=== PATIENT | female | born 1970 | race Caucasian/White ===

== ENCOUNTER 2020-08-12 17:05 | Emergency (ER) | payer BC, SELFPAY ==
--- NOTE | 2020-08-12 17:14 | ED.CHESTPAIN ---
HPI - Chest Pain General Chief Complaint: General Medical Stated Complaint: chest pain/headache Time Seen by Provider: 08/12/20 17:14 Source: patient Mode of arrival: ambulatory Limitations: no limitations History of Present Illness HPI narrative: 50-year-old female with past medical history of hypothyroidism presents with sudden onset of right-sided headache, right-sided arm weakness, and right-sided chest pain. She does have a history of bilateral carpal tunnel and has not had the right hand repaired. She does not report any trauma, is not on any hormones, has no history of blood clots, no family history of stroke or coronary artery disease. She denies chest pressure, palpitations, shortness of breath, abdominal pain, abdominal distention, dysuria, hematuria, loss of balance, decreased range of motion fevers and chills. MD complaint: chest pain Onset (ago): hour(s) (4) Timing of current episode: constant and still present Prior episodes: No Onset: during rest Pain location: substernal Pain radiation: right arm Severity: moderate Pain scale (0-10): 7 Quality: aching Relieving factors: nothing Exacerbating factors: nothing Associated symptoms: other ( Headache) Treatment prior to arrival: aspirin and nitroglycerin Risk Factors Coronary artery disease risk factors: none Thoracic aortic dissection risk factors: none Related Data On Oral Contraceptives: No Allergies Allergy/AdvReac Type Severity Reaction Status Date / Time codeine [CODEINE] Allergy Mild HEADACHES Verified 08/12/20 21:24 Penicillins [PENICILLINS] Allergy Unknown HEAVINESS Verified 08/12/20 21:24 IN HEAD Review of Systems Review of Systems: Constitutional: No Weight loss, No Fever, No Chills, No Night Sweats, No Fatigue, No Malaise ENT/Mouth: No Hearing loss, No Ear Pain, No Nasal Congestion, No Sinus Pain, No Hoarseness, No sore throat, No Rhinorrhea, No Swallowing Difficulty Eyes: No Eye Pain, No Swelling, No Redness, No Foreign Body, No Discharge, No Vision Changes Cardiovascular: pos Chest Pain, no SOB, no Dyspnea on Exertion, No Orthopnea, No Edema, No Palpitations Respiratory: No Cough, No Sputum, No Wheezing, No Smoke Exposure, No Dyspnea Gastrointestinal: no Nausea, No Vomiting, No Diarrhea, No abdominal Pain, No Hematochezia, No Melena Genitourinary: No irregular bleeding, No Dysuria, No Urinary Frequency, No Hematuria, No Urinary Incontinence, No Urgency, No Flank Pain, No Urinary Flow Changes, No Hesitancy Musculoskeletal: No joint pain, No Myalgias, No Joint Swelling Skin: No Skin Lesions, No rash Neuro: No Weakness, No Numbness, No Paresthesias, No Loss of Consciousness, No Dizziness, positive Headache Psych: No Anxiety/Panic, No Depression, No SI/HI/AH/VH Heme/Lymph: No Bruising, No Bleeding,No Lymphadenopathy Endocrine: No Polyuria, No Polydipsia, No Temperature Intolerance Yes all other systems are reviewed and are negative [facility] Past Medical History Medical History (Updated 08/13/20 @ 00:00 by Brigette Trejo) Hypothyroid Social History Social History Alcohol intake: never Smoked in Last 30 Days: No Use of substances other than those prescribed or required for medical reasons: No Advance Directives: No Advance Directives Information Provided: No Physical Exam Vital Signs: Vital Signs: Last Vital Signs Temp 98.3 F 08/12/20 17:15 Pulse 62 08/12/20 21:25 Resp 16 08/12/20 21:25 BP 126/77 08/12/20 21:25 Pulse Ox 98 08/12/20 21:25 Body Mass Index 30.2 Appearance: Alert. Oriented X3. No acute distress. Eyes: Pupils equal, round and reactive to light. ENT: Pharynx normal. Neck: Normal inspection. Neck supple. CVS: Normal heart rate and rhythm. Pulses normal. Respiratory: No respiratory distress. Breath sounds normal. Abdomen: Soft and nontender. Skin: Skin warm and dry. Normal skin color. Normal skin turgor. Extremities: No lower extremity edema. Neuro: No motor deficit. No sensory deficit. NIH Stroke Scale Internal: Initial- Upon Arrival Level of Consciousness: Alert Level of Consciousness Questions: Answers both questions correctly Level of Consciousness Commands: Performs both tasks correctly Best Gaze: Normal Visual: No visual loss Facial Palsy: Normal Motor Arm (Right): No drift Motor Arm (Left): No drift Motor Leg (Right): No drift Motor Leg (Left): No drift Limb Ataxia: Absent Sensory: Normal Best Language: No aphasia Dysarthia: Normal Extinction and Inattention: No abnormality Score: 0 Course Course Course Narrative: 50-year-old female with past medical history of hypothyroidism presents with right-sided headache, right-sided chest pain and right-sided arm pain With weakness to the hand. She does have carpal tunnel and has a baseline weakness to the right hand however does have full range of motion to all extremities. NIH stroke scale upon arrival is negative, highly unlikely that this is a stroke, stroke alert will not be called at this time. We will order CTA of head, neck, and chest. She does have tachycardia with increased chest pain on inspiration. we will rule out ACS, order CBC, Chem 7, EKG, urinalysis and U preg. Labs are unremarkable, troponin is negative, EKG is normal sinus rhythm with rightward axis. CTA of head and neck, chest negative for acute findings. This could be viral illness, Anxiety, however patient must follow up with primary care physician in the next week or so for further evaluation. MDM - Chest Pain MDM Narrative Medical decision making narrative: PE, CVA, viral illness Differential Diagnosis Differential diagnosis: Likely fracture of rib, pneumothorax, stable angina, unstable angina pectoris, atypical chest pain, st elevation myocardial infarction, costochondritis, chest pain and biliary colic Medical Records Data Attestation: I reviewed the patient's medical records. Lab Data Attestation: I reviewed the patient's lab results. Result diagrams: 08/12/20 18:42 08/12/20 18:41 Labs: Lab Results 08/12/20 08/12/20 08/12/20 Range/Units 18:17 18:17 18:41 WBC (4.8-10.8) X10*3/uL RBC (4.20-5.50) X10*6/uL Hgb (12.0-16.0) g/dl Hct (37-47) % MCV (80-98) fL MCH (27.0-33.0) pg MCHC (31.0-35.0) g/dl RDW (11.0-16.0) % Plt Count (160-400) X10*3/uL MPV (9.4-12.3) fL Immature Gran % (Auto) (0.0-0.4) % Neut % (Auto) (45-73) % Lymph % (Auto) (20-40) % [place] % (Auto) (2-11) % Eos % (Auto) (0-4) % Baso % (Auto) (0-2) % Lymph # (Auto) (1.2-4.9) X10*3/uL [place] # (Auto) (0.1-1.2) X10*3/uL Eos # (Auto) (0.0-0.4) X10*3/uL Baso # (Auto) (0.0-0.2) X10*3/uL Abs Immat Gran (auto) (0.00-0.03) X10*3/uL Absolute Neuts (auto) (2.0-8.3) X10*3/uL Absolute Nucleated RBC (0.0-0.012) X10*3/uL Nucleated RBC % (auto) (0.0-0.2) /100WBC Hold Blue Top Sodium 139 (135-145) mmol/L Potassium 3.4 (3.3-5.1) mmol/l Chloride 110 H (96-108) mmol/L Carbon Dioxide 20 L (22-29) mmol/L Anion Gap 12 (12-20) BUN 8 L (9-16) mg/dL Creatinine 0.73 (0.5-1.4) mg/dL Estim Creat Clear Calc 89.3 Estimated GFR > 60 Random Glucose 109 (60-115) mg/dL Lactic Acid (0.5-2.0) mmol/L Calcium 8.4 (8.4-10.2) mg/dL Magnesium 2.1 (1.6-2.6) mg/dL Total Bilirubin 0.3 (0.0-1.0) mg/dL Direct Bilirubin < 0.2 (0.0-0.5) mg/dL AST 12 (5-31) U/L ALT 15 (0-31) U/L Alkaline Phosphatase 61 (39-117) U/L Troponin I High Sens < 3.5 (<3.5-17.0) ng/L Total Protein 6.7 (6.5-8.0) g/dL Albumin 4.0 (3.5-5.0) g/dL Lipase 27 (8-78) U/L Urine Color YELLOW Urine Appearance CLEAR Urine pH 5.5 (5.0-8.0) Ur Specific [place] <= 1.005 (1.005-1.025) Urine Protein NEG (NEG-TRACE) MG/DL Urine Glucose (UA) NEG (NEG) MG/DL Urine Ketones NEG (NEG) MG/DL Urine Blood NEG (NEG) Urine Nitrite NEG (NEG) Ur Leukocyte Esterase NEG (NEG) Urine Test NEGATIVE (NEGATIVE) 08/12/20 08/12/20 08/12/20 Range/Units 18:42 18:42 18:42 WBC 13.5 H (4.8-10.8) X10*3/uL RBC 4.59 (4.20-5.50) X10*6/uL Hgb 14.0 (12.0-16.0) g/dl Hct 41.5 (37-47) % MCV 90.4 (80-98) fL MCH 30.5 (27.0-33.0) pg MCHC 33.7 (31.0-35.0) g/dl RDW 12.4 (11.0-16.0) % Plt Count 330 (160-400) X10*3/uL MPV 10.1 (9.4-12.3) fL Immature Gran % (Auto) 0.3 (0.0-0.4) % Neut % (Auto) 77.5 H (45-73) % Lymph % (Auto) 11.7 L (20-40) % [place] % (Auto) 9.0 (2-11) % Eos % (Auto) 1.1 (0-4) % Baso % (Auto) 0.4 (0-2) % Lymph # (Auto) 1.6 (1.2-4.9) X10*3/uL [place] # (Auto) 1.2 (0.1-1.2) X10*3/uL Eos # (Auto) 0.2 (0.0-0.4) X10*3/uL Baso # (Auto) 0.1 (0.0-0.2) X10*3/uL Abs Immat Gran (auto) 0.04 H (0.00-0.03) X10*3/uL Absolute Neuts (auto) 10.4 H (2.0-8.3) X10*3/uL Absolute Nucleated RBC 0.000 (0.0-0.012) X10*3/uL Nucleated RBC % (auto) 0.0 (0.0-0.2) /100WBC Hold Blue Top SEE NOTE Sodium (135-145) mmol/L Potassium (3.3-5.1) mmol/l Chloride (96-108) mmol/L Carbon Dioxide (22-29) mmol/L Anion Gap (12-20) BUN (9-16) mg/dL Creatinine (0.5-1.4) mg/dL Estim Creat Clear Calc Estimated GFR Random Glucose (60-115) mg/dL Lactic Acid 1.4 (0.5-2.0) mmol/L Calcium (8.4-10.2) mg/dL Magnesium (1.6-2.6) mg/dL Total Bilirubin (0.0-1.0) mg/dL Direct Bilirubin (0.0-0.5) mg/dL AST (5-31) U/L ALT (0-31) U/L Alkaline Phosphatase (39-117) U/L Troponin I High Sens (<3.5-17.0) ng/L Total Protein (6.5-8.0) g/dL Albumin (3.5-5.0) g/dL Lipase (8-78) U/L Urine Color Urine Appearance Urine pH (5.0-8.0) Ur Specific [place] (1.005-1.025) Urine Protein (NEG-TRACE) MG/DL Urine Glucose (UA) (NEG) MG/DL Urine Ketones (NEG) MG/DL Urine Blood (NEG) Urine Nitrite (NEG) Ur Leukocyte Esterase (NEG) Urine Test (NEGATIVE) Imaging Data CTA of head, neck, and chest: Attestation: I personally reviewed and interpreted this imaging study as follows: Radiologist's impression: FINDINGS: Head CT: There is no intracranial hemorrhage, large acute infarction, or mass lesion. The ventricles are normal in size and configuration without evidence of hydrocephalus. On the postcontrast images, no enhancing lesion is seen. The dural venous sinuses demonstrate normal enhancement. The visualized paranasal sinuses and mastoid air cells are clear. Neck CTA: The great vessel origins are patent. The bilateral common and internal carotid arteries are patent without stenosis of the bifurcations. Both vertebral arteries are patent and codominant. The left vertebral artery arises directly from the arch. Head CTA: No proximal vessel occlusion is seen. There is a normal right posterior communicating artery. The anterior circulation and posterior circulation appear patent. No stenosis or aneurysm is seen. Non-vascular findings: Multilevel degenerative changes are seen in the cervical spine. The upper lungs are grossly clear. The cervical soft tissues are unremarkable. CT/CT angio head neck IMPRESSION: CT head: No intracranial hemorrhage or large acute infarction. CTA neck: No hemodynamically significant stenosis in the major arteries of the neck. CTA head: No large vessel occlusion or significant stenosis within the intracranial circulation. EXAMINATION: CT chest w con. CLINICAL INFORMATION: Reason for Exam chest pressure COMPARISON: No prior CT available for comparison. TECHNIQUE: Multidetector volumetric CT imaging of the chest was done. Axial MIP volume rendering provided. Sagittal and coronal reformatted images were obtained. This CT examination was performed using dose optimization techniques as appropriate, variously including the following: *Automated exposure control *Adjustment of mA and/or kV according to patient size (this includes techniques or standardized protocols for targeted exams where dose is matched to indication/reason for exam; i.e. extremities or head) *Use of iterative reconstruction technique CONTRAST: IV contrast administered. DLP: 2673 mGy-cm FINDINGS: TREATMENT PLANT MECHANIC: LINES/TUBES: Security Guard reviewed, no lines. LUNGS: Lung parenchyma: No evidence of significant interstitial disease. Lung nodules/masses: There are no significant lung nodules. AIRWAYS: Trachea and bronchi are normal. PLEURA: No pleural effusion or pneumothorax. MEDIASTINUM AND ABHISHEK: No mediastinal, hilar or axillary lymphadenopathy. No mediastinal mass. VESSELS: HEART AND PERICARDIUM: Thoracic aorta is normal in size. Heart is normal in size. No pericardial effusion. Pulmonary arteries are normal in size. LOWER NECK, AXILLA: The visualized thyroid gland is unremarkable. No axillary mass or adenopathy. VISUALIZED ABDOMEN: Unremarkable CHEST WALL AND BONES: No chest wall mass. The visualized bony thorax is within normal limits. CT/CT chest w con IMPRESSION: No CT evidence of acute intrathoracic process to explain patient's symptoms. No infiltrate or failure. No lung mass. No pleural effusion or pneumothorax. No fractures. Chest x-ray: Attestation: I personally reviewed and interpreted this imaging study as follows: Radiologist's impression: CLINICAL INFORMATION: Worsening chest pain and SOB. COMPARISON: Chest 08/02/2010. TECHNIQUE: Frontal view of the chest was obtained. FINDINGS: There are several calcified densities overlying the right lung apex. Otherwise the lungs are well-expanded and clear. The heart size and pulmonary vascularity is normal. No gross bony abnormality seen. XR/XR chest 1V IMPRESSION: Several calcified densities overlying the right lung apex. These are unchanged to previous study 08/02/2010. Otherwise no acute process seen. ECG Data ECG #1: Attestation: I personally reviewed and interpreted this ECG as follows: ECG interpretation date: 08/12/20 ECG interpretation time: 17:51 Interpretation: Ventricular rate 76 beats per minute, p.r. interval 138, QRS 80, QTC 362, QTC 407, normal sinus rhythm with sinus arrhythmia rightward axis, prior EKGs unavailable secondary to system failure Critical Care Time Critical Care Time Critical Care Time: Yes Total Critical Care Time: 60 Attestation: I have personally provided critical care time exclusive of time spent on separately billable procedures. Time includes review of laboratory data, radiology results, discussion with consultants, and monitoring for potential decompensation. Interventions were performed as documented. Discharge Plan Discharge Clinical Impression: Chest pain, Right arm weakness, Headache Patient Disposition: Home, Self-Care Instructions: Chest Pain (ED), Acute Headache (ED), Weakness (ED), Noncardiac Chest Pain (ED) Additional Instructions: you were evaluated for multiple complaints. We did a CT angiogram of her head, neck and chest For right-sided headache, right-sided arm weakness, and chest pain. Your exams are negative for acute findings requiring emergent intervention. You do have a mildly elevated white count, which could be consistent with anxiety or viral illness. Please follow-up with primary care provider in the next week. Thank you for choosing this emergency department for evaluation. Please follow-up with primary care physician as needed. Return to the emergency department for any new, concerning, or worsening symptoms. Interventions: ED Discharge Assessment Last Done: 08/12/20 22:49 Discharge Date/Time: 08/12/20 22:49
[2020-08-12 17:15] VITALS: BP 128/69; BP 135/70; PULSE 100; RESP 22; TEMP 36.8; O2SAT 95; BMI 30.2
--- NOTE | 2020-08-12 17:22 | CT_ITS ---
EXAMINATION: CT chest w con. CLINICAL INFORMATION: Reason for Exam chest pressure COMPARISON: No prior CT available for comparison. TECHNIQUE: Multidetector volumetric CT imaging of the chest was done. Axial MIP volume rendering provided. Sagittal and coronal reformatted images were obtained. This CT examination was performed using dose optimization techniques as appropriate, variously including the following: *Automated exposure control *Adjustment of mA and/or kV according to patient size (this includes techniques or standardized protocols for targeted exams where dose is matched to indication/reason for exam; i.e. extremities or head) *Use of iterative reconstruction technique CONTRAST: IV contrast administered. DLP: 2673 mGy-cm FINDINGS: AIRCRAFT MACHINIST: LINES/TUBES: Assessor reviewed, no lines. LUNGS: Lung parenchyma: No evidence of significant interstitial disease. Lung nodules/masses: There are no significant lung nodules. AIRWAYS: Trachea and bronchi are normal. PLEURA: No pleural effusion or pneumothorax. MEDIASTINUM AND ABHISHEK: No mediastinal, hilar or axillary lymphadenopathy. No mediastinal mass. VESSELS: HEART AND PERICARDIUM: Thoracic aorta is normal in size. Heart is normal in size. No pericardial effusion. Pulmonary arteries are normal in size. LOWER NECK, AXILLA: The visualized thyroid gland is unremarkable. No axillary mass or adenopathy. VISUALIZED ABDOMEN: Unremarkable CHEST WALL AND BONES: No chest wall mass. The visualized bony thorax is within normal limits. CT/CT chest w con IMPRESSION: No CT evidence of acute intrathoracic process to explain patient's symptoms. No infiltrate or failure. No lung mass. No pleural effusion or pneumothorax. No fractures.
--- NOTE | 2020-08-12 17:22 | CT_ITS ---
EXAMINATION: CT ANGIOGRAM NECK WITH CONTRAST CT ANGIOGRAM BRAIN WITH CONTRAST CLINICAL INFORMATION: Right-sided headache. Right arm weakness. COMPARISON: None. TECHNIQUE: Test bolus sequences followed by intravenous administration 70 mL of Omnipaque 350. Helical imaging was performed in the axial plane from the thoracic inlet to the skull vertex. Delayed postcontrast imaging of the head was also performed. The data was processed at the cardiac technologist workstation for generation of MIP sequences. Angled MIPs and volume rendered reformatted images were also generated at an offline 3D workstation. Stenoses are assessed in accordance with NASCET criteria unless otherwise indicated. This CT examination was performed using dose optimization techniques as appropriate, variously including the following: *Automated exposure control *Adjustment of mA and/or kV according to patient size (this includes techniques or standardized protocols for targeted exams where dose is matched to indication/reason for exam; i.e. extremities or head) *Use of iterative reconstruction technique DLP: 2286 mGy-cm FINDINGS: Head CT: There is no intracranial hemorrhage, large acute infarction, or mass lesion. The ventricles are normal in size and configuration without evidence of hydrocephalus. On the postcontrast images, no enhancing lesion is seen. The dural venous sinuses demonstrate normal enhancement. The visualized paranasal sinuses and mastoid air cells are clear. Neck CTA: The great vessel origins are patent. The bilateral common and internal carotid arteries are patent without stenosis of the bifurcations. Both vertebral arteries are patent and codominant. The left vertebral artery arises directly from the arch. Head CTA: No proximal vessel occlusion is seen. There is a normal right posterior communicating artery. The anterior circulation and posterior circulation appear patent. No stenosis or aneurysm is seen. Non-vascular findings: Multilevel degenerative changes are seen in the cervical spine. The upper lungs are grossly clear. The cervical soft tissues are unremarkable. CT/CT angio head neck IMPRESSION: CT head: No intracranial hemorrhage or large acute infarction. CTA neck: No hemodynamically significant stenosis in the major arteries of the neck. CTA head: No large vessel occlusion or significant stenosis within the intracranial circulation.
--- NOTE | 2020-08-12 17:27 | ECG_ITS ---
Test Reason : WEAKNESS Blood Pressure : / mmHG Vent. Rate : 076 BPM Atrial Rate : 076 BPM P-R Int : 138 ms QRS Dur : 080 ms QT Int : 362 ms P-R-T Axes : 058 092 060 degrees QTc Int : 407 ms Normal sinus rhythm with sinus arrhythmia Rightward axis Nonspecific ST abnormality Inferior leads Anterolateral leads Abnormal ECG No previous ECGs available Referred By: Mally Ontiveros Electronically Signed By:LYDIA MARINO MD
[2020-08-12] MEDS: 0.9 % Sodium Chloride 1,000 ML 999 ML IVCONT ×2 (17:51)
[2020-08-12 18:04] VITALS: RESP 16
[2020-08-12] MEDS: Acetaminophen 325 MG TABLET 650 MG PO (18:04)
[2020-08-12] MEDS: ondansetron HCL 4 MG/2 ML VIAL IVPUSH (18:04)
[2020-08-12] MEDS: Morphine Sulfate 4 MG/ML CARTRIDGE 2 MG IVPUSH (18:04)
--- NOTE | 2020-08-12 18:13 | XR_ITS ---
EXAMINATION: XR CHEST CLINICAL INFORMATION: Worsening chest pain and SOB. COMPARISON: Chest 08/02/2010. TECHNIQUE: Frontal view of the chest was obtained. FINDINGS: There are several calcified densities overlying the right lung apex. Otherwise the lungs are well-expanded and clear. The heart size and pulmonary vascularity is normal. No gross bony abnormality seen. XR/XR chest 1V IMPRESSION: Several calcified densities overlying the right lung apex. These are unchanged to previous study 08/02/2010. Otherwise no acute process seen.
[2020-08-12 18:14] VITALS: BP 141/81; PULSE 105; RESP 20; O2SAT 99
[2020-08-12 18:26] LABS: Glucose Urine UA NEG (NEG); Leukocyte Esterase Urine NEG (NEG); Nitrite Urine NEG (NEG); PH 5.5 (5.0-8.0); Specific Gravity - Urine <= 1.005 (1.005-1.025); Urine Blood NEG (NEG); Urine Ketones NEG (NEG); Urine Protein NEG (NEG-TRACE)
[2020-08-12 18:35] LABS: UPreg QC Valid YES; Urine Pregnancy NEGATIVE (NEGATIVE)
[2020-08-12 18:36] LABS: Appearance Urine CLEAR; Color Urine YELLOW
[2020-08-12 18:53] LABS: MANUAL DIFF FLAG NO
[2020-08-12 18:54] LABS: Troponin-I High Sensitivity < 3.5 ng/L (<3.5-17.0)
[2020-08-12 18:56] LABS: Basophils Absolute Auto 0.1 X10*3/uL (0.0-0.2); Basophils Percent Auto 0.4 % (0-2); Eosinophils Absolute Auto 0.2 X10*3/uL (0.0-0.4); Eosinophils Percent Auto 1.1 % (0-4); Hematocrit 41.5 % (37-47); Imm Gran Abs Auto 0.04 X10*3/uL (0.00-0.03); Imm Gran Pct Auto 0.3 % (0.0-0.4); Lymphocytes Absolute Auto 1.6 X10*3/uL (1.2-4.9); Lymphocytes Percent Auto 11.7 % (20-40); Mean Corpuscular HGB Conc 33.7 g/dl (31.0-35.0); Mean Corpuscular Hemoglobin 30.5 pg (27.0-33.0); Mean Corpuscular Volume 90.4 fL (80-98); Mean Platelet Volume 10.1 fL (9.4-12.3); Monocytes Absolute Auto 1.2 X10*3/uL (0.1-1.2); Neutrophils Absolute Auto 10.4 X10*3/uL (2.0-8.3); Neutrophils Percent Auto 77.5 % (45-73); Platelet Count 330 X10*3/uL (160-400); Red Blood Count 4.59 X10*6/uL (4.20-5.50); Red Cell Distribution Width 12.4 % (11.0-16.0); White Blood Count 13.5 X10*3/uL (4.8-10.8)
[2020-08-12 19:01] LABS: Lactic Acid 1.4 mmol/L (0.5-2.0)
[2020-08-12 19:20] LABS: Alanine Aminotransferase 15 U/L (0-31); Alkaline Phosphatase 61 U/L (39-117); Anion Gap 12 (12-20); Aspartate Amino Transferase 12 U/L (5-31); Bilirubin Direct < 0.2 mg/dL (0.0-0.5); Bilirubin Total 0.3 mg/dL (0.0-1.0); Blood Urea Nitrogen 8 mg/dL (9-16); Calcium 8.4 mg/dL (8.4-10.2); Carbon Dioxide 20 mmol/L (22-29); Chloride 110 mmol/L (96-108); Creatinine Clr Calc Pharmacy 89.3; Estimated Glomerular Filt Rate > 60; Glucose Random 109 mg/dL (60-115); Lipase 27 U/L (8-78); Magnesium 2.1 mg/dL (1.6-2.6); Potassium 3.4 mmol/l (3.3-5.1); Sodium 139 mmol/L (135-145); Total Protein 6.7 g/dL (6.5-8.0)
[2020-08-12] MEDS: iohexoL 350 MG/ML 100 ML INFUS..BTL IV (20:14)
[2020-08-12 21:25] VITALS: BP 126/77; PULSE 62; RESP 16; O2SAT 98
== END 2020-08-12 22:49 | disposition home or self-care (01) ==
PROVIDERS: Nurse Practitioner Family; Emergency Provider Emergency Medicine; PCP Internal Medicine
DX: R07.9 Chest pain, unspecified (principal); R51.9 Headache, unspecified; R53.1 Weakness
CPT/HCPCS: 36415; 70496; 70498; 71045; 71260; 80048; 80076; 81003; 81025; 83605; 83690; 83735; 84484; 85025; 87040; 93005; 96361; 96374; 96375; 99284; 99291; J2270; J2405; Q9967

== ENCOUNTER 2024-02-15 12:21 | Emergency (ER) | payer BC, MEDICAID, SELFPAY ==
--- NOTE | ~2024-02-15 | XR_ITS ---
EXAMINATION: XR CHEST CLINICAL INFORMATION: Shortness of breath. COMPARISON: 08/12/2020 TECHNIQUE: 2 views of the chest were obtained. FINDINGS: The lungs are well expanded. No focal consolidation. No pleural effusion. Stable calcifications projecting over the right upper chest. Cardiac silhouette is unchanged. XR/XR chest 2V IMPRESSION: No acute abnormality.
[2024-02-15 12:29] VITALS: BP 131/75; PULSE 104; RESP 25; TEMP 36.8; O2SAT 97; BMI 32.4
[2024-02-15] MEDS: LORazepam 2 MG/ML VIAL IM (12:29)
--- NOTE | 2024-02-15 12:38 | ED_ITS ---
HPI - General Adult General Chief complaint: General Medical Stated complaint: Gen med Time Seen by Provider: 02/15/24 12:24 Source: patient and RN notes reviewed Mode of arrival: ambulatory Limitations: no limitations History of Present Illness ED Provider: Belinda Connor PA-C [facility] narrative: This is a 53 year old female who presents emergency department with complaints of increased shortness of breath. She was having a pulmonary function test without any medications and suddenly felt short of breath. At work connection and she was given a breathing treatment, and suddenly developed shakiness. On arrival, patient shaking in upper and lower extremities, hyperventilating. Unable to answer any question secondary to current condition MD complaint: Shortness of breath, shakiness Relieving factors: none Exacerbating factors: none Associated symptoms: denies other symptoms Treatments prior to arrival: none Related Data Allergies Allergy/AdvReac Type Severity Reaction Status Date / Time codeine [CODEINE] Allergy Mild HEADACHES Verified 02/15/24 12:34 Penicillins [PENICILLINS] Allergy Unknown HEAVINESS Verified 08/12/20 21:24 IN HEAD Review of Systems 2 Review of Systems: Yes all other systems are reviewed and are negative Constitutional: Constitutional: Reports as per [facility] Past Medical History Medical History (Updated 02/16/24 @ 00:01 by Brigette Trejo) Hypothyroid Social History Social History Alcohol intake: never Physical Exam ED Vital Signs: Vital Signs - 24 hr 02/15/24 12:29 02/15/24 14:44 Temperature 98.3 F 97.5 F Pulse Rate 104 H 79 Respiratory Rate 25 H 18 Blood Pressure 131/75 142/84 H Pulse Oximetry 97 100 Oxygen Delivery Method Room Air Room Air BMI result Body Mass Index 32.4 Const General: cooperative and anxious Orientation/consciousness: patient oriented x3 Limitations: no limitations HENMT Head: Yes normal to inspection, Yes normocephalic and Yes atraumatic Ears: hearing grossly normal bilaterally General nose exam: Normal external nose present Face and sinus: Yes normal facial exam Mouth: Normal oral and palatal mucosa present, oropharynx normal and moist mucous membranes Throat: Yes posterior oropharynx normal Eyes General: appearance normal, both eyes and all related structures Eyelids: Yes eyelids normal Conjunctivae: conjunctivae normal Sclerae: sclerae normal Pupils: Equal, round and reactive pupils present EOM: EOMs intact bilaterally Neck Neck: Yes normal visual inspection, Yes full ROM and Yes no lymphadenopathy Lymphatic: no lymphadenopathy noted Chest Chest palpation & inspection: normal inspection of the chest Resp Effort & Inspection: normal respiratory effort and able to speak in complete sentences Auscultation: clear to auscultation bilaterally, no crackles, no rales, no rhonchi and no wheezes Cardio Rate: regular rate Rhythm: regular rhythm Heart sounds: S1 normal heart sound present and S2 normal heart sound present GI Inspection: Yes normal to inspection Skin General skin exam: no rashes or lesions noted Trauma: no lacerations or abrasions Wounds: no wounds Neuro General: patient oriented x3 and moves all extremities Cranial nerves: Yes Equal, round and reactive pupils present Extrem Other: Upper and lower carpopedal spasms noted bilaterally General: Yes normal to inspection Right upper extremity: normal to inspection Left upper extremity: normal to inspection Right lower extremity: normal to inspection Left lower extremity: normal to inspection Course Reevaluation(s) Reevaluation #1: Pt re-evaluated after receiving Ativan 2mg IM, feeling much better, given symptoms, will obtain labs, EKG, cxr Time: 12:43 Reevaluation #2: first EKG poorly captured, was extremely tremulous, now that patient is calm, will obtain second EKG. Lactic acid was initially ordered due to shakiness, however patient never lost conciousness or alertness. Pt was extremely tremulous, hyperventilating, and received albuterol. There is no concern for infection at this time. She does not meet SIRs criteria and there is no infectious etiology in this presentation. Elevated lactic acidosis due to hyperventilation and albuterol. Patient at this time is much more calm, will repeat troponin at 1600, if negative, patient will be stable for discharge. I discussed at length that patient does have a history of panic disorder, states that her presentation was consistent with her panic attacks she has had. She has some right-sided chest wall pain which is reproducible, vital signs stable. Discussed with my attending physician, Dr. Jaramillo who is in agreement. Time: 14:07 Reevaluation #3: Second troponin negative. Patient's workup unremarkable. Discussed findings with patient with principal embedded software engineer at bedside. Chest x-ray normal. Will treat as a panic attack. Given return precautions. She understands and agrees with plan. Patient stable for discharge. Time: 16:46 Medications Administered Discontinued Medications Generic Name Dose Route Start Last Admin Trade Name Tanya PRN Reason Stop Dose Admin Acetaminophen 650 mg 02/15/24 16:36 02/15/24 16:40 Acetaminophen 325 Mg Tablet PO 02/15/24 16:37 650 mg ONCE ONE Administration Lorazepam 2 mg 02/15/24 12:23 02/15/24 12:29 Lorazepam 2 Mg/Ml Vial IM 02/15/24 12:24 2 mg ONCE ONE Administration Potassium Chloride 40 meq 02/15/24 16:17 02/15/24 16:33 Potassium Chloride Er 20 Meq Tab.Er.Prt PO 02/15/24 16:18 40 meq ONCE ONE Administration Medical Decision Making Medical Decision Making [facility] Narrative: This is a 53-year-old female who presents emergency department from [facility] connection after having a episode of shortness for breath, shaking, and carpopedal spasms. On arrival, patient hyperventilating, anxious, shaking, however alert and oriented, she is able to speak however breathing quickly, and shaky. She to be having a panic attack. Patient was given Ativan 2 mg IM. Given acute episode of shortness for breath after receiving albuterol and Atrovent, will obtain labs, EKG, chest x-ray. Plan: Labs, EKG, chest x-ray Differential Diagnosis Differential Diagnoses: The differential diagnosis associated with the presentation includes Anxiety, ACS-unlikely, seizure disorder-unlikely, depression, panic attack Admission/Observation Consideration of admission/observation: Escalation of care including admission/observation considered Lab Data [facility] Lab Attestation statement: I reviewed the patient's lab results. Slight leukocytosis at 13.6 however this is likely reactive secondary to anxiety, and panic disorder. lactic acidosis at 3.6 02/15/24 13:02 02/15/24 13:02 Labs: Lab Results 02/15/24 02/15/24 02/15/24 Range/Units 13:01 13:02 16:14 WBC 13.6 H (4.8-10.8) X10*3/uL RBC 4.82 (4.20-5.50) X10*6/uL Hgb 14.8 (12.0-16.0) g/dl Hct 43.1 (37.0-47.0) % MCV 89.4 (80.0-98.0) fL MCH 30.7 (27.0-33.0) pg MCHC 34.3 (31.0-35.0) g/dl RDW 12.3 (11.0-16.0) % Plt Count 346 (160-400) X10*3/uL MPV 9.8 (9.4-12.3) fL Immature Gran % (Auto) 0.4 (0.0-0.4) % Neut % (Auto) 74.2 H (45-73) % Lymph % (Auto) 17.2 L (20-40) % [place] % (Auto) 7.1 (2-11) % Eos % (Auto) 0.7 (0-4) % Baso % (Auto) 0.4 (0-2) % Lymph # (Auto) 2.3 (1.2-4.9) X10*3/uL [place] # (Auto) 1.0 (0.1-1.2) X10*3/uL Eos # (Auto) 0.1 (0.0-0.4) X10*3/uL Baso # (Auto) 0.1 (0.0-0.2) X10*3/uL Abs Immat Gran (auto) 0.05 H (0.00-0.03) X10*3/uL Absolute Neuts (auto) 10.1 H (2.0-8.3) x10*3/uL Absolute Nucleated RBC 0.000 (0.0-0.012) X10*3/uL Nucleated RBC % (auto) 0.0 (0.0-0.2) /100WBC Sodium 139 (135-145) mmol/L Potassium 3.0 L (3.3-5.1) mmol/L Chloride 107 (96-108) mmol/L Carbon Dioxide 21 L (22-29) mmol/L Anion Gap 14 (12-20) BUN 12 (9-16) mg/dL Creatinine 0.81 (0.5-1.4) mg/dL Estim Creat Clear Calc 83.7 Estimated GFR > 60 Random Glucose 100 (60-115) mg/dL Lactic Acid 3.6 H* (0.5-2.0) mmol/L Lactic Acid F/U @ 2Hr 1.7 (0.5-2.0) mmol/L Calcium 9.6 D (8.4-10.2) mg/dL Magnesium 2.0 (1.6-2.6) mg/dL Total Bilirubin 0.3 (0.0-1.0) mg/dL Direct Bilirubin 0.1 (0.0-0.5) mg/dL AST 16 (5-31) U/L ALT 21 (0-31) U/L Alkaline Phosphatase 70 (39-117) U/L Troponin I High Sens < 2.7 < 2.7 (<3.5-17.0) ng/L Total Protein 7.5 (6.5-8.0) g/dL Albumin 4.5 (3.5-5.0) g/dL Independent Interpretation I performed an independent interpretation of an: EKG Interpretation: EKG NSR at 81BPM, no st elevation or depression, QT/QTC 384/446. Radiology Impression Discussion of test interpretation with radiology: I have reviewed the radiologist's reading. Radiologist Impression: XR/XR chest 2V IMPRESSION: No acute abnormality. Dictated By: Thuan Calixto MD Discharge Plan Discharge Clinical Impression: Panic attack Patient Disposition: Home, Self-Care Instructions: Anxiety (ED), Panic Attack (ED) Additional Instructions: You were seen in the emergency department due to a panic attack. Please rest and drink plenty of fluids. Your workup today was normal. If any new or worsening symptoms occur including but not limited to chest pain, shortness of breath, please return for re-evaluation. Stand Alone Forms: Work/School Release Interventions: ED Discharge Assessment Last Done: 02/15/24 16:59 Discharge Date/Time: 02/15/24 17:00 Print Language: Czech
--- NOTE | 2024-02-15 12:40 | PC.NURSE ---
Pt coming from work connection, was getting pulmonary function test there and started having SOB/ increased WOB. RT came and gave her albuterol treatment, hx of asthma. Rapid response was called due to increased SOB, shaking, increased HR and carpopedal spasms. Pt brought to ER, alert and oriented but obviously upset/ crying. Breathing elevated, pt coached but staff with improvements. Skin clammy. Pt placed on bedside youth nutritional monitor, HR initially 130s, lowered as pt calmed and breathed easier. Pt medicated per NOV. Denies pain.
--- NOTE | 2024-02-15 12:43 | ECG_ITS ---
Test Reason : SOB Blood Pressure : / mmHG Vent. Rate : 095 BPM Atrial Rate : 288 BPM P-R Int : 000 ms QRS Dur : 110 ms QT Int : 380 ms P-R-T Axes : 033 066 011 degrees QTc Int : 477 ms Poor data quality Possible Normal sinus rhythm Nonspecific T wave abnormality Prolonged QT Abnormal ECG When compared with ECG of 12-AUG-2020 17:51, Repeat EKG Poor data quality in current ECG precludes serial comparison Referred By: Belinda Connor Electronically Signed By:MADY CHAMBERLAIN MD
[2024-02-15 13:07] LABS: MANUAL DIFF FLAG NO
[2024-02-15 13:12] LABS: Basophils Absolute Auto 0.1 X10*3/uL (0.0-0.2); Basophils Percent Auto 0.4 % (0-2); Eosinophils Absolute Auto 0.1 X10*3/uL (0.0-0.4); Eosinophils Percent Auto 0.7 % (0-4); Hematocrit 43.1 % (37.0-47.0); Hemoglobin 14.8 g/dl (12.0-16.0); Imm Gran Abs Auto 0.05 X10*3/uL (0.00-0.03); Imm Gran Pct Auto 0.4 % (0.0-0.4); Lymphocytes Absolute Auto 2.3 X10*3/uL (1.2-4.9); Lymphocytes Percent Auto 17.2 % (20-40); Mean Corpuscular HGB Conc 34.3 g/dl (31.0-35.0); Mean Corpuscular Hemoglobin 30.7 pg (27.0-33.0); Mean Corpuscular Volume 89.4 fL (80.0-98.0); Mean Platelet Volume 9.8 fL (9.4-12.3); Monocytes Percent Auto 7.1 % (2-11); Neutrophils Absolute Auto 10.1 x10*3/uL (2.0-8.3); Neutrophils Percent Auto 74.2 % (45-73); Platelet Count 346 X10*3/uL (160-400); Red Blood Count 4.82 X10*6/uL (4.20-5.50); Red Cell Distribution Width 12.3 % (11.0-16.0); White Blood Count 13.6 X10*3/uL (4.8-10.8)
[2024-02-15 13:28] LABS: Alanine Aminotransferase 21 U/L (0-31); Albumin Level 4.5 g/dL (3.5-5.0); Alkaline Phosphatase 70 U/L (39-117); Anion Gap 14 (12-20); Aspartate Amino Transferase 16 U/L (5-31); Bilirubin Direct 0.1 mg/dL (0.0-0.5); Bilirubin Total 0.3 mg/dL (0.0-1.0); Blood Urea Nitrogen 12 mg/dL (9-16); Calcium 9.6 mg/dL (8.4-10.2); Carbon Dioxide 21 mmol/L (22-29); Chloride 107 mmol/L (96-108); Creatinine Clr Calc Pharmacy 83.7; Estimated Glomerular Filt Rate > 60; Glucose Random 100 mg/dL (60-115); Sodium 139 mmol/L (135-145); Total Protein 7.5 g/dL (6.5-8.0)
[2024-02-15 13:43] LABS: Troponin-I High Sensitivity < 2.7 ng/L (<3.5-17.0)
[2024-02-15 13:46] LABS: Lactic Acid 3.6 mmol/L (0.5-2.0)
--- NOTE | 2024-02-15 14:04 | PC.NURSE ---
Addendum entered by Glenda Askew 02/15/24 14:06: right sided chest pain * Original Note: Pt reports left sided chest pain, sharp, 11/21. Family reports pt did not sign her name like usual, provider alerted.
--- NOTE | 2024-02-15 14:07 | ECG_ITS ---
Test Reason : REPEAT/ SOB Blood Pressure : / mmHG Vent. Rate : 081 BPM Atrial Rate : 081 BPM P-R Int : 154 ms QRS Dur : 076 ms QT Int : 384 ms P-R-T Axes : 037 068 000 degrees QTc Int : 446 ms Normal sinus rhythm Normal ECG When compared with ECG of 15-FEB-2024 13:16, QRS duration has decreased Nonspecific T wave abnormality no longer evident in Lateral leads Referred By: Belinda Connor Electronically Signed By:MADY CHAMBERLAIN MD
[2024-02-15 14:44] VITALS: BP 142/84; PULSE 79; RESP 18; TEMP 36.4; O2SAT 100
[2024-02-15 15:06] LABS: Reflex Lactate? Lactic Acid Added
[2024-02-15 16:32] LABS: ~Lactic Acid-LAB USE ONLY 1.7 mmol/L (0.5-2.0)
[2024-02-15] MEDS: Potassium Chloride ER 20 MEQ TAB.ER.PRT 40 MEQ PO (16:33)
[2024-02-15] MEDS: Acetaminophen 325 MG TABLET 650 MG PO (16:40)
[2024-02-15 16:41] LABS: Troponin-I High Sensitivity < 2.7 ng/L (<3.5-17.0)
[2024-02-15 16:59] VITALS: BP 151/80; PULSE 75; RESP 16; TEMP 36.3; O2SAT 97
== END 2024-02-15 17:00 | disposition home or self-care (01) ==
PROVIDERS: Physician Assistant Medical; Emergency Provider Emergency Medicine; PCP Internal Medicine
DX: F41.0 Panic disorder [episodic paroxysmal anxiety] (principal); R06.02 Shortness of breath; R06.4 Hyperventilation; G25.2 Other specified forms of tremor
CPT/HCPCS: 36415; 71046; 80048; 80076; 83605; 83735; 84484; 85025; 93005; 96372; 99284; 99285; J2060

== ENCOUNTER → 2024-02-15 12:43 | Outpatient (BNV) | payer BC, MEDICAID, SELFPAY | PROVIDERS: Emergency Provider Emergency Medicine; PCP Internal Medicine; Visit Provider Internal Medicine Cardiovascular Disease | DX: R94.31 Abnormal electrocardiogram [ECG] [EKG] (principal) | CPT/HCPCS: 93010 ==